=== PATIENT | female | born 1975 | race American Indian/Alaskan Native ===

== ENCOUNTER 2016-12-18 14:35 | Emergency (ER) | payer SELFPAY ==
[2016-12-18 14:54] VITALS: BP 126/86
[2016-12-18 15:40] LABS: Basophils % (Auto) 0.3 % (0.0-1.8); Eosinophils % (Auto) 7.4 % (0.0-4.3); Hematocrit 38.6 % (30.3-42.9); Hemoglobin 12.9 gm/dl (10.1-14.3); Mean Corpuscular HGB Conc 34 % (30-34); Mean Corpuscular Hemoglobin 34 pg (28-32); Mean Corpuscular Volume 102 fl (79-97); Platelet Count 268 K/mm3 (140-440); Red Blood Count 3.79 M/mm3 (3.65-5.03); Red Cell Distribution Width 13.7 % (13.2-15.2); White Blood Count 6.1 K/mm3 (4.5-11.0)
[2016-12-18 15:56] LABS: Anion Gap 17 mmol/L; BUN/Creatinine Ratio 6.66; Blood Urea Nitrogen 8 mg/dL (7-17); Calcium 9.1 mg/dL (8.4-10.2); Carbon Dioxide 24 mmol/L (22-30); Chloride 103.8 mmol/L (98-107); Glucose 98 mg/dL (65-100); Potassium 4.4 mmol/L (3.6-5.0); Sodium 140 mmol/L (137-145)
== END 2016-12-18 20:15 | disposition left against medical advice (07) ==
LOC: ED 14:35
DX: R07.9 Chest pain, unspecified (principal); Z53.21 Procedure and treatment not carried out due to patient leaving prior to being seen by health care provider
CPT/HCPCS: 36415; 80048; 84484; 85025; 93005; 93010

== ENCOUNTER 2017-07-18 21:10 | Inpatient (IN) | payer SELFPAY ==
[2017-07-18] MEDS ORDERED: ASPIRIN PO ONE (21:42)
[2017-07-18] MEDS ORDERED: SUBLIMAZE IV ONE (22:13)
[2017-07-18] MEDS ORDERED: NITROSTAT SL PRN (22:13)
--- NOTE | 2017-07-18 22:14 | Emergency Department Report ---
ED Chest Pain HPI - General Chief Complaint: Chest Pain Stated Complaint: CHEST PAIN Time Seen by Provider: 07/18/17 21:59 Source: patient, EMS (ems notes not available at time of chart dictation), RN notes reviewed Mode of arrival: Stretcher Limitations: No Limitations - History of Present Illness Initial Comments: This is a 42-year-old female, previously unknown to this provider, reported history of coronary artery disease with 2 stents, patient reports positive cardiac catheterization done at [facility] August of this year. Patient had insurance issues, and for a few weeks was not taking her Plavix and blood pressure medication. Presents today with complaint of left-sided chest pain that radiates to the left shoulder and neck. Patient has positive shortness of breath, no vomiting, no diaphoresis. Patient reports that she is not and has not given since the , she does not take oral contraceptive tablets, denies cocaine use, denies DVT/pulmonary embolus risk factors. MD Complaint: chest pain -: Gradual Onset: during rest Pain Location: left chest Pain Radiation: LUE, back, neck Severity: mild Quality: tightness, aching, heaviness Consistency: intermittent Improves With: nothing Worsens With: nothing Treatments Prior to Arrival: aspirin, nitroglycerin Aspirin use within the Past 7 Days: (1) Yes - Related Data On Oral Contraceptives: Yes Home Medications Medication Instructions Recorded Confirmed Last Taken Clopidogrel [Plavix] 75 mg PO QDAY 07/18/17 07/18/17 Unknown Lisinopril [Zestril] 40 mg PO QDAY 07/18/17 07/18/17 Unknown Carvedilol [Coreg] 3.125 mg PO QDAY 07/19/17 07/19/17 Unknown Previous Rx's Medication Instructions Recorded Last Taken Type Aspirin EC [Aspirin Enteric Coated 325 mg PO QDAY tablet 07/19/17 Unknown Rx TAB] Docusate Sodium [Colace CAP] 100 mg PO BID capsule 07/19/17 Unknown Rx Pantoprazole [Protonix TAB] 40 mg PO QDAY tablet 07/19/17 Unknown Rx Zolpidem [Ambien] 5 mg PO QHS PRN tablet 07/19/17 Unknown Rx amLODIPine [Norvasc] 5 mg PO QDAY tablet 07/19/17 Unknown Rx Allergies Allergy/AdvReac Type Severity Reaction Status Date / Time No Known Allergies Allergy Unverified 01/24/16 14:50 Heart Score - HEART Score History: Moderately suspicious EKG: Non-specific Age: < 45 Risk factors: 1-2 risk factors Troponin: < normal limit HEART Score: 3 - Critical Actions Critical Actions: 0-3 pts:0.9-1.7%risk of adverse cardiac event.Candidate for discharge ED Review of Systems ROS: Stated complaint: CHEST PAIN Other details as noted in HPI ED Past Medical Hx - Past Medical History Previous Medical History?: Yes Hx Hypertension: Yes Hx Heart Attack/AMI: Yes - Surgical History Hx Coronary Stent: Yes (x2) Hx Breast Surgery: Yes (breast reduction) - Social History Smoking Status: Current Every Day Smoker Substance Use Type: Alcohol, Prescribed - Medications Home Medications: Home Medications Medication Instructions Recorded Confirmed Last Taken Type Clopidogrel [Plavix] 75 mg PO QDAY 07/18/17 07/18/17 Unknown History Lisinopril [Zestril] 40 mg PO QDAY 07/18/17 07/18/17 Unknown History Aspirin EC [Aspirin Enteric Coated 325 mg PO QDAY tablet 07/19/17 Unknown Rx TAB] Carvedilol [Coreg] 3.125 mg PO QDAY 07/19/17 07/19/17 Unknown History Docusate Sodium [Colace CAP] 100 mg PO BID capsule 07/19/17 Unknown Rx Pantoprazole [Protonix TAB] 40 mg PO QDAY tablet 07/19/17 Unknown Rx Zolpidem [Ambien] 5 mg PO QHS PRN tablet 07/19/17 Unknown Rx amLODIPine [Norvasc] 5 mg PO QDAY tablet 07/19/17 Unknown Rx ED Physical Exam - General Limitations: No Limitations General appearance: alert, in no apparent distress - Head Head exam: Present: atraumatic, normocephalic - Eye Eye exam: Present: normal appearance, EOMI. Absent: nystagmus - ENT ENT exam: Present: normal exam, normal orophraynx, mucous membranes moist, normal external ear exam - Neck Neck exam: Present: normal inspection, full ROM - Respiratory Respiratory exam: Present: normal lung sounds bilaterally. Absent: respiratory distress - Cardiovascular Cardiovascular Exam: Present: regular rate, normal rhythm, normal heart sounds. Absent: systolic murmur, diastolic murmur, rubs, gallop - GI/Abdominal GI/Abdominal exam: Present: soft, normal bowel sounds. Absent: distended, tenderness, guarding, rebound, rigid, pulsatile mass - Extremities Exam Extremities exam: Present: normal inspection, full ROM, normal capillary refill. Absent: tenderness, pedal edema, joint swelling, calf tenderness - Back Exam Back exam: Present: normal inspection, full ROM. Absent: tenderness, CVA tenderness (R), paraspinal tenderness, vertebral tenderness - Neurological Exam Neurological exam: Present: alert, oriented X3, CN II-XII intact, normal gait, other (Extraocular movements intact. Tongue midline. No facial droop. Facial sensation intact to light touch in the V1, V2, V3 distribution bilaterally. 5 and 5 strength in 4 extremities.. Sensation is intact to light touch in 4 extremities.). Absent: motor sensory deficit - Psychiatric Psychiatric exam: Present: normal affect, normal mood - Skin Skin exam: Present: warm, dry, intact, normal color. Absent: rash ED Course Vital Signs 07/18/17 07/18/17 07/18/17 21:21 21:30 21:31 Temperature 98.4 F Pulse Rate 69 74 Respiratory 13 21 Rate Blood Pressure 146/87 147/86 147/86 Blood Pressure [Right] O2 Sat by Pulse 100 100 100 Oximetry 07/18/17 07/18/17 07/18/17 21:45 22:00 22:15 Temperature Pulse Rate 81 71 68 Respiratory 15 13 16 Rate Blood Pressure 147/86 156/93 156/96 Blood Pressure [Right] O2 Sat by Pulse 100 100 Oximetry 07/18/17 07/18/17 07/18/17 22:30 22:46 23:00 Temperature Pulse Rate 68 70 64 Respiratory 18 14 17 Rate Blood Pressure 144/92 144/92 144/92 Blood Pressure [Right] O2 Sat by Pulse 100 100 Oximetry 07/18/17 07/18/17 07/18/17 23:11 23:15 23:30 Temperature Pulse Rate 72 62 Respiratory 14 13 15 Rate Blood Pressure 154/92 158/90 Blood Pressure [Right] O2 Sat by Pulse 97 97 Oximetry 07/18/17 07/19/17 07/19/17 23:45 00:00 00:15 Temperature Pulse Rate 62 65 63 Respiratory 15 10 L 14 Rate Blood Pressure 145/83 139/87 142/84 Blood Pressure [Right] O2 Sat by Pulse 96 99 98 Oximetry 07/19/17 07/19/17 07/19/17 00:30 00:46 01:00 Temperature Pulse Rate 59 L 63 70 Respiratory 16 15 18 Rate Blood Pressure 146/85 153/86 158/85 Blood Pressure [Right] O2 Sat by Pulse 99 99 100 Oximetry 07/19/17 07/19/17 07/19/17 01:08 01:10 01:20 Temperature 98 F Pulse Rate 69 68 76 Respiratory 18 12 13 Rate Blood Pressure 146/85 153/84 Blood Pressure 158/85 [Right] O2 Sat by Pulse 100 100 99 Oximetry - Reevaluation(s) Reevaluation #1: 07/18/17 22:28 Differential diagnosis, including but not limited to: Acute coronary syndrome, GERD, gastritis, hiatal hernia, pneumonia Assessment and plan: 42-year-old female, history of stents 2, noncompliant with Plavix, with concerning chest pain. No pulmonary embolus or DVT risk factors, low risk by well's criteria, perc negative. Laboratory studies, x-rays of the chest pending, patient will be ordered for as needed nitroglycerin, fentanyl. Plan to admit for acute coronary syndrome risk stratification. We are attempting to obtain her old medical records from her prior cardiac catheterization. Reevaluation #2: 07/18/17 23:33 Troponin negative 1, chest x-ray unremarkable, case presented to cardiology on- call, Dr. Cross, and hospital physician chronometer assembler and adjuster, Dr. Vang Cardiology agrees with plan for admission and repeat risk stratification, he indicates they will follow in consultation, the hospital team graciously accepted the patient's to the medical service. DEVIN score - Devin Score Age > 65: (0) No Aspirin use within the Past 7 Days: (1) Yes 3 or more CAD Risk Factors: (0) No 2 or more Angina events in past 24 hrs: (0) No Known CAD with more than 50% Stenosis: (0) No Elevated Cardiac Markers: (0) No ST Deviation Greater than 0.5mm: (0) No DEVIN Score: 1 ED Medical Decision Making - Lab Data Result diagrams: 07/19/17 00:44 07/19/17 00:44 Vital Signs 07/18/17 21:31 Temperature 98.4 F Pulse Rate 74 Respiratory 21 Rate Blood Pressure 147/86 O2 Sat by Pulse 100 Oximetry - EKG Data -: EKG Interpreted by Me - EKG Data When compared to previous EKG there are: previous EKG unavailable 07/18/17 22:29 Normal sinus, 73 beats per minute, borderline left axis deviation, incomplete right bundle branch block, QTC prolonged at 459 ms, abnormal EKG, no prior for comparison, not morphologically consistent with ST elevation myocardial infarction. - Radiology Data Radiology results: image reviewed interpreted by me: X-ray of the chest, interpreted by me: No acute disease Critical care attestation.: If time is entered above; I have spent that time in minutes in the direct care of this critically ill patient, excluding procedure time. ED Disposition Clinical Impression: Coronary artery disease, Chest pain Disposition: OP ADMIT IP TO THIS HOSP Is pt being admited?: Yes Condition: Good
[2017-07-18 22:59] LABS: Basophils % (Auto) 0.5 % (0.0-1.8); Eosinophils # (Auto) 0.4 K/mm3 (0.0-0.4); Eosinophils % (Auto) 6.2 % (0.0-4.3); Hematocrit 36.4 % (30.3-42.9); Hemoglobin 12.2 gm/dl (10.1-14.3); Lymphocytes # (Auto) 3.2 K/mm3 (1.2-5.4); Mean Corpuscular HGB Conc 34 % (30-34); Mean Corpuscular Hemoglobin 34 pg (28-32); Mean Corpuscular Volume 103 fl (79-97); Monocytes # (Auto) 0.5 K/mm3 (0.0-0.8); Monocytes % (Auto) 7.7 % (0.0-7.3); Platelet Count 273 K/mm3 (140-440); Red Blood Count 3.55 M/mm3 (3.65-5.03); Red Cell Distribution Width 13.8 % (13.2-15.2)
[2017-07-18 23:10] LABS: INR 0.84 (0.87-1.13)
[2017-07-18 23:20] LABS: BUN/Creatinine Ratio 10; Blood Urea Nitrogen 7 mg/dL (7-17); Calcium 8.7 mg/dL (8.4-10.2); Hemolysis Index 5
--- NOTE | 2017-07-19 00:07 | XRay Report ---
FINAL REPORT PROCEDURE: XR CHEST 1V AP TECHNIQUE: Chest radiograph anteroposterior view. CPT 48437 HISTORY: cp COMPARISON: No prior studies are available for comparison. FINDINGS: Heart: Normal. Mediastinum/Vessels: Normal. Lungs/Pleural space: There are no infiltrates, effusions or pneumothoraces.. Bony thorax: No acute osseous abnormality. Life support devices: None. IMPRESSION: No acute cardiopulmonary abnormality.
--- NOTE | 2017-07-19 00:20 | History and Physical Report ---
History of Present Illness Date of examination: 07/19/17 Chief complaint: Chest pain History of present illness: Patient is a 42-year-old female with a known history of CAD status post PCI back in August 2016. This was done at [facility] and she had 2 stents placed. 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 Patient stated that today she has been trying to refill her blood pressure medicines and her Plavix but unable to do so because the [facility] system takes too long to refill patient's prescriptions and she has been out of her Plavix and blood pressure medicine for the past 2 weeks. She was at work when she had sudden onset of precordial chest pain and chest tightness going to her back radiating to the left shoulder and left arm. No associated nausea vomiting tingling numbness or weakness. Patient has been having these intermittent dizziness over the past few months and has been evaluated for it in the past with a negative workup. She denies any headache or shortness of breath or palpitations. No other GI or symptoms. Past History Past Medical History: CAD, hypertension Past Surgical History: Other (PCI) Social history: lives with family, smoking, alcohol abuse, full code Family history: no significant family history Medications and Allergies Allergies Allergy/AdvReac Type Severity Reaction Status Date / Time No Known Allergies Allergy Unverified 01/24/16 14:50 Home Medications Medication Instructions Recorded Confirmed Last Taken Type Clopidogrel [Plavix] 75 mg PO QDAY 07/18/17 07/18/17 Unknown History Lisinopril [Zestril] 40 mg PO QDAY 07/18/17 07/18/17 Unknown History Carvedilol [Coreg] 3.125 mg PO QDAY 07/19/17 07/19/17 Unknown History Active Meds: Active Medications Nitroglycerin (Nitrostat) 0.4 mg SL .Q5MIN PRN PRN Reason: Chest Pain Review of Systems All systems: negative Exam - Physical Exam Narrative exam: General: the patient is awake alert oriented to time place and person. no evidence of acute distress HEENT: Head is atraumatic normocephalic,. Pupils equal round reactive to light and accommodation, extraocular movements intact. Oral mucosa moist. Oropharynx clear. No pharyngeal erythema or tonsillar exudate. Neck: Supple no JVD no thyromegaly or lymphadenopathy. Heart: Regular rate and rhythm no murmurs or gallops. S1 and S2 normal. PMI not displaced. Lungs: Clear to auscultation bilaterally. No rales rhonchi wheezing. Nonlabored breathing. Normal chest wall expansion. Abdomen: Soft, nondistended, and nontender. Normoactive bowel sounds. No hepatosplenomegaly. No abdominal masses or bruit appreciated. Extremities: No cyanosis/clubbing/ edema. Musculoskeletal: Normal range of movement all joints. No obvious deformity or tenderness to palpation. Normal muscle tone. Back: Normal alignment. No step-off. No midline or paraspinal tenderness. No CVA tenderness. Neurological: Grossly intact and nonfocal. No cerebellar signs. Cranial nerves II-12 grossly intact. Strength 5 out of 5 all 4 extremities. Sensations grossly intact. Skin: Warm and dry no rashes or bruises. Psychiatric: Normal mood. Appropriate affect and good insight and judgment. Vascular system: No lymphadenopathy. Distal pulses 2+ bilaterally. - Constitutional Vitals: Temp Pulse Resp BP Pulse Ox 98.4 F 74 14 147/86 100 07/18/17 21:31 07/18/17 21:31 07/18/17 23:11 07/18/17 21:31 07/18/17 21:31 Results - Labs CBC & Chem 7: 07/18/17 22:42 07/18/17 22:42 Labs: Laboratory Last Values WBC 7.0 K/mm3 (4.5-11.0) 07/18/17 22:42 RBC 3.55 M/mm3 (3.65-5.03) L 07/18/17 22:42 Hgb 12.2 gm/dl (10.1-14.3) 07/18/17 22:42 Hct 36.4 % (30.3-42.9) 07/18/17 22:42 MCV 103 fl (79-97) H 07/18/17 22:42 MCH 34 pg (28-32) H 07/18/17 22:42 MCHC 34 % (30-34) 07/18/17 22:42 RDW 13.8 % (13.2-15.2) 07/18/17 22:42 Plt Count 273 K/mm3 (140-440) 07/18/17 22:42 Lymph % (Auto) 46.0 % (13.4-35.0) H 07/18/17 22:42 [place] % (Auto) 7.7 % (0.0-7.3) H 07/18/17 22:42 Eos % (Auto) 6.2 % (0.0-4.3) H 07/18/17 22:42 Baso % (Auto) 0.5 % (0.0-1.8) 07/18/17 22:42 Lymph # 3.2 K/mm3 (1.2-5.4) 07/18/17 22:42 [place] # 0.5 K/mm3 (0.0-0.8) 07/18/17 22:42 Eos # 0.4 K/mm3 (0.0-0.4) 07/18/17 22:42 Baso # 0.0 K/mm3 (0.0-0.1) 07/18/17 22:42 Seg Neutrophils % 39.6 % (40.0-70.0) L 07/18/17 22:42 Seg Neutrophils # 2.8 K/mm3 (1.8-7.7) 07/18/17 22:42 PT 11.9 Sec. (12.2-14.9) L 07/18/17 22:42 INR 0.84 (0.87-1.13) L 07/18/17 22:42 Sodium 140 mmol/L (137-145) 07/18/17 22:42 Potassium 4.0 mmol/L (3.6-5.0) 07/18/17 22:42 Chloride 104.0 mmol/L (98-107) 07/18/17 22:42 Carbon Dioxide 24 mmol/L (22-30) 07/18/17 22:42 Anion Gap 16 mmol/L 07/18/17 22:42 BUN 7 mg/dL (7-17) 07/18/17 22:42 Creatinine 0.7 mg/dL (0.7-1.2) 07/18/17 22:42 Estimated GFR > 60 ml/min 07/18/17 22:42 BUN/Creatinine Ratio 10 % 07/18/17 22:42 Glucose 98 mg/dL (65-100) 07/18/17 22:42 Calcium 8.7 mg/dL (8.4-10.2) 12/28/17 22:42 Troponin T < 0.010 ng/mL (0.00-0.029) 07/18/17 22:42 - Imaging and Cardiology Imaging and Cardiology: EKG showing normal sinus rhythm rate of 73 right bundle branch block but otherwise negative for acute ischemia or other arrhythmia. QTC prolonged at 459 MS Chest x-ray showing no acute cardiopulmonary process. Assessment and Plan Assessment and plan: Assessment and plan - * Chest pain rule out acute coronary syndrome * Hypertension malignant * Tobacco abuse * Coronary artery disease status post PCI Plan - Admitted to medical floor with telemetry for 24-hour observation For the chest pain protocol and get serial cardiac enzymes Consulted cardiology in the ER for further management and evaluation recommendations. Patient may need stress test in the morning Continue her home medications and give when necessary hydralazine for optimal blood pressure control Check a fasting lipid panel Aspirin Statin Monitor CBC and electrolytes replace electrolytes when necessary as per protocol. GI prophylaxis as ordered monitor follow the patient closely.
[2017-07-19] MEDS ORDERED: SODIUM CHLORIDE FLUSH SYRINGE 10 ML IV PRN (00:23)
[2017-07-19] MEDS ORDERED: DULCOLAX PR PRN (00:23)
[2017-07-19] MEDS ORDERED: APRESOLINE IV PRN (00:23)
[2017-07-19] MEDS ORDERED: PROVENTIL IH PRN (00:23)
[2017-07-19] MEDS ORDERED: AMBIEN PO PRN (00:23)
[2017-07-19] MEDS ORDERED: ZOFRAN IV PRN (00:23)
[2017-07-19] MEDS ORDERED: MILK OF MAGNESIA PO PRN (00:23)
[2017-07-19] MEDS ORDERED: TYLENOL PO PRN (00:23)
[2017-07-19] MEDS ORDERED: NACL 0.45% 1000 ML 1,000 ML IV SCH (01:00)
[2017-07-19 01:14] LABS: Basophils % (Auto) 0.6 % (0.0-1.8); Eosinophils # (Auto) 0.4 K/mm3 (0.0-0.4); Eosinophils % (Auto) 5.9 % (0.0-4.3); Hematocrit 41.4 % (30.3-42.9); Hemoglobin 13.6 gm/dl (10.1-14.3); Lymphocytes # (Auto) 3.5 K/mm3 (1.2-5.4); Lymphocytes % (Auto) 48.9 % (13.4-35.0); Mean Corpuscular HGB Conc 33 % (30-34); Mean Corpuscular Hemoglobin 35 pg (28-32); Mean Corpuscular Volume 105 fl (79-97); Monocytes # (Auto) 0.4 K/mm3 (0.0-0.8); Monocytes % (Auto) 6.1 % (0.0-7.3); Red Blood Count 3.96 M/mm3 (3.65-5.03)
[2017-07-19 01:22] LABS: Platelet Count 196 K/mm3 (140-440)
[2017-07-19 01:28] LABS: BUN/Creatinine Ratio 9; Blood Urea Nitrogen 6 mg/dL (7-17); Hemolysis Index 78
[2017-07-19 01:58] LABS: Chol/HDL Ratio 3.52 %; HDL Cholesterol 44 mg/dL (40-59); LDL Cholesterol,Direct 100 mg/dL (50-130)
[2017-07-19] MEDS ORDERED: LOVENOX SUB-Q SCH (10:00)
[2017-07-19] MEDS ORDERED: COREG PO SCH (10:00)
[2017-07-19] MEDS ORDERED: PLAVIX PO SCH (10:00)
[2017-07-19] MEDS ORDERED: COLACE PO SCH (10:00)
[2017-07-19] MEDS ORDERED: NORVASC PO SCH (10:00)
[2017-07-19] MEDS ORDERED: PROTONIX PO SCH (10:00)
[2017-07-19] MEDS ORDERED: ZESTRIL PO SCH (10:00)
--- NOTE | 2017-07-19 10:13 | Consultation ---
History of Present Illness Consult date: 07/19/17 Requesting physician: MOHAMUD QUIROZ Consult reason: chest pain History of present illness: The pt is a 42 YO female with a past medical history significant for CAD s/p PCI x2 in 08/2016 at [facility], HTN and tobacco use. She is previously unknown to our practice. She reports that she is regularly followed by [facility] cardiology. She presented with c/o chest pain since yesterday evening. She reports that she was at work when she noted the onset of her pain, but was not doing anything physically active. She describes her pain as a precordial tightness and pressure which radiates into her back, left shoulder and left arm. She also c/o intermittent dizziness for the past day. She denies any SOB, palpitations, n/v, diaphoresis or syncope. She admits that she has been out of her prescription medications, including Plavix and anti-hypertensives, for the past 2 week due to pharmacy issues. Past History Past Medical History: CAD, hypertension Past Surgical History: Other (PCI) Social history: lives with family, smoking, alcohol abuse, full code Family history: no significant family history Medications and Allergies Allergies Allergy/AdvReac Type Severity Reaction Status Date / Time No Known Allergies Allergy Unverified 01/24/16 14:50 Home Medications Medication Instructions Recorded Confirmed Last Taken Type Clopidogrel [Plavix] 75 mg PO QDAY 07/18/17 07/18/17 Unknown History Lisinopril [Zestril] 40 mg PO QDAY 07/18/17 07/18/17 Unknown History Carvedilol [Coreg] 3.125 mg PO QDAY 07/19/17 07/19/17 Unknown History Active Meds: Active Medications Acetaminophen (Tylenol) 650 mg PO Q4H PRN PRN Reason: Pain MILD(1-3)/Fever >100.5/JEAN Albuterol (Proventil) 2.5 mg IH Q3HRT PRN PRN Reason: Shortness Of Breath Amlodipine Besylate (Norvasc) 5 mg PO QDAY [facility] Aspirin (Ecotrin) 325 mg PO QDAY [facility] Atorvastatin Calcium (Lipitor) 40 mg PO QHS [facility] Bisacodyl (Dulcolax) 10 mg ME QDAY PRN PRN Reason: Constipation unrelieved by MOM Carvedilol (Coreg) 6.25 mg PO BID [facility] Clopidogrel Bisulfate (Plavix) 75 mg PO QDAY [facility] Docusate Sodium (Colace) 100 mg PO BID [facility] Enoxaparin Sodium (Lovenox) 40 mg SUB-Q QDAY [facility] Hydralazine HCl (Apresoline) 10 mg IV Q6H PRN PRN Reason: FOR SBP > target Sodium Chloride (Nacl 0.45% 1000 Ml) 1,000 mls @ 100 mls/hr IV DIRECT [facility] Lisinopril (Zestril) 40 mg PO QDAY [facility] Magnesium Hydroxide (Milk Of Magnesia) 30 ml PO Q4H PRN PRN Reason: Constipation Nitroglycerin (Nitrostat) 0.4 mg SL .Q5MIN PRN PRN Reason: Chest Pain Last Admin: 07/19/17 02:47 Dose: 0.4 mg Ondansetron HCl (Zofran) 4 mg IV Q8H PRN PRN Reason: N/V unrelieved by Reglan Pantoprazole Sodium (Protonix) 40 mg PO QDAY [facility] Sodium Chloride (Sodium Chloride Flush Syringe 10 Ml) 10 ml IV PRN PRN PRN Reason: LINE FLUSH Zolpidem Tartrate (Ambien) 5 mg PO QHS PRN PRN Reason: Sleep Last Admin: 07/19/17 02:47 Dose: 5 mg Review of Systems Constitutional: no weight loss, no weight gain, no fever, no chills, no sweats Ears, nose, mouth and throat: no ear pain, no nose pain, no sinus pressure, no sinus pain Cardiovascular: chest pain, lightheadedness, high blood pressure, no orthopnea, no palpitations, no rapid/irregular heart beat, no edema, no syncope, no shortness of breath, no dyspnea on exertion, no leg edema Respiratory: no cough, no shortness of breath, no dyspnea on exertion, no congestion, no wheezing, no pain on inspiration Gastrointestinal: no abdominal pain, no nausea, no vomiting, no diarrhea, no constipation, no change in bowel habits Genitourinary Female: no pelvic pain, no flank pain, no menorrhagia, no dysuria , no urinary frequency, no urgency Musculoskeletal: no neck stiffness, no neck pain, no shooting arm pain, no arm numbness/tingling, no low back pain, no shooting leg pain, no leg numbness/ tingling, no redness of joints Integumentary: no rash, no pruritis, no redness, no sores, no wounds Neurological: no head injury, no paralysis, no weakness, no parathesias, no numbness, no tingling, no seizures, no syncope Psychiatric: no anxiety Endocrine: no cold intolerance, no heat intolerance Hematologic/Lymphatic: no easy bruising, no easy bleeding, no lymphadenopathy Allergic/Immunologic: no urticaria, no wheezing, no persistent infections Physical Examination Vital Signs BP Pulse Ox 146/87 100 07/18/17 21:21 07/18/17 21:21 General appearance: no acute distress HEENT: Positive: PERRL, Normocephaly, Mucus Membranes Moist Neck: Positive: neck supple, trachea midline Cardiac: Positive: Reg Rate and Rhythm, S1/S2 Lungs: Positive: clear to auscultation Neuro: Positive: Grossly Intact, Cranial Nerve 2-12 Intact Abdomen: Positive: Unremarkable, Soft, Active Bowel Sounds. Negative: Tender Skin: Positive: Clear. Negative: Rash, Wound Musculoskeletal: No Fluid Collection, No Pain, Normal Range of Motion Extremities: Absent: edema Results 07/19/17 00:44 07/19/17 00:44 Coagulation 07/18/17 Range/Units 22:42 PT 11.9 L (12.2-14.9) Sec. INR 0.84 L (0.87-1.13) Lipids 07/19/17 Range/Units 00:44 Triglycerides 56 (2-149) mg/dL Cholesterol 155 (50-199) mg/dL HDL Cholesterol 44 (40-59) mg/dL Cholesterol/HDL Ratio 3.52 % CBC 07/18/17 07/19/17 Range/Units 22:42 00:44 WBC 7.0 7.1 (4.5-11.0) K/mm3 RBC 3.55 L 3.96 (3.65-5.03) M/mm3 Hgb 12.2 13.6 (10.1-14.3) gm/dl Hct 36.4 41.4 (30.3-42.9) % Plt Count 273 196 (140-440) K/mm3 Lymph # 3.2 3.5 (1.2-5.4) K/mm3 [place] # 0.5 0.4 (0.0-0.8) K/mm3 Eos # 0.4 0.4 (0.0-0.4) K/mm3 Baso # 0.0 0.0 (0.0-0.1) K/mm3 Comprehensive Metabolic Panel 07/18/17 07/19/17 Range/Units 22:42 00:44 Sodium 140 139 (137-145) mmol/L Potassium 4.0 4.1 (3.6-5.0) mmol/L Chloride 104.0 102.0 (98-107) mmol/L Carbon Dioxide 24 23 (22-30) mmol/L BUN 7 6 L (7-17) mg/dL Creatinine 0.7 0.7 (0.7-1.2) mg/dL Glucose 98 93 (65-100) mg/dL Calcium 8.7 9.0 (8.4-10.2) mg/dL - Imaging and Cardiology Echo: pending EKG: report reviewed, image reviewed EKG interpretations - Telemetry EKG Rhythm: Sinus Rhythm - EKG Sinus rhythms and dysrhythmias: sinus rhythm Assessment and Plan Assessment: Chest pain - with typical features; ECG with NAF; Alonzo negative for AMI CAD s/p PCI x 2 in 08/2016 at [facility] Tobacco use - cessation encouraged Plan: Agree with current cardiac regimen. Proceed with lexiscan MPI stress test this AM. Await findings. Obtain echo. Assessment and plan reviewed with pt at bedside. The patient has been seen in conjunction with Dr. Woods who agrees with the assessment and plan of care.
[2017-07-19] MEDS ORDERED: LEXISCAN IV ONE (11:33)
--- NOTE | 2017-07-19 13:17 | Event Note ---
Date: 07/19/17 Lexiscan MPI stress test this AM negative for ischemia. Echo reviewed with no acute findings. Currently stable cardiac status. Pt may discharge home from cardiology standpoint. Recommend pt follow up with primary auto collision repair instructor at [place] within 1-2 weeks of hospital discharge. Kai EDOUARD NP / DR. FLORES
--- NOTE | 2017-07-19 13:34 | Discharge Summary ---
<VALERIEYONI - Last Filed: 07/19/17 14:00> Providers - Providers Date of Admission: 07/19/17 00:23 Date of discharge: 07/19/17 Attending physician: TISH SHABAZZ 07/18/17 23:33 Consult to Physician [CONS] Urgent Consulting Provider: MARU ESCOBAR Reason For Exam: cp Notified:: yes 07/19/17 00:23 Consult to Cardiology [CONS] Routine Consulting Provider: SUNDAY FOWLER Reason For Exam: chest pain Primary care physician: SABINA HO Hospitalization Reason for admission: Chest pain Condition: Good Hospital course: Patient is a 42-year-old female with past medical history of hypertension and coronary artery disease and status post PCI back in August 2016 was done at [facility] and she had 2 stents placed. Patient had sudden onset of precordial chest pain and chest tightness going to her back radiating to the left shoulder and left arm. Patient was diagnosed Chest Pain, Hypertension malignant,Tobacco abuse and coronary artery disease status post PCI.Patient presented with atypical chest pain, ACS was ruled out, stress test normal MPI, negative cardiac enzymes, ECGs shows normal sinus rythm, CXR WNL. Patient chest pain probably from musculoskeletal. She was treated with IV fluid hydration and antihypertensive medications. Patient is clinically improved. Patient advised to follow-up with her [employer] and primary care provider. Discharge Diagnosed Chest Pain due to Costochondritis Hypertension malignant Tobacco abuse Coronary artery disease status post PCI Disposition: DC-01 TO HOME OR SELFCARE Time spent for discharge: 32 minutes Core Measure Documentation - Palliative Care Palliative Care/ Comfort Measures: Not Applicable - Core Measures Any of the following diagnoses?: none Exam - Constitutional Vitals: Temp Pulse Resp BP Pulse Ox 98.4 F 97 H 20 140/91 100 07/19/17 07:42 07/19/17 11:41 07/19/17 07:42 07/19/17 11:41 07/19/17 07:42 General appearance: Present: no acute distress - EENT Eyes: Present: PERRL ENT: hearing intact - Neck Neck: Present: supple - Respiratory Respiratory effort: normal Respiratory: bilateral: CTA - Cardiovascular Rhythm: regular Heart Sounds: Present: S1 & S2 - Abdominal General gastrointestinal: Present: soft, non-tender Female genitourinary: Present: deferred - Rectal Rectal Exam: deferred - Integumentary Integumentary: Present: clear, warm, dry - Musculoskeletal Musculoskeletal: strength equal bilaterally - Psychiatric Psychiatric: appropriate mood/affect - Neurologic Neurologic: moves all extremities - Allied Health Allied health notes reviewed: nursing Plan Diet: low fat, low cholesterol, low salt Follow up with: JOSE MIGUEL PEREZ PA [Primary Care Provider] - 3-5 Days <TISH SHABAZZ - Last Filed: 07/19/17 15:38> Providers - Providers Date of Admission: 07/19/17 00:23 Attending physician: TISH SHABAZZ 07/18/17 23:33 Consult to Physician [CONS] Urgent Consulting Provider: MARU ESCOBAR Reason For Exam: cp Notified:: yes 07/19/17 00:23 Consult to Cardiology [CONS] Routine Consulting Provider: SUNDAY FOWLER Reason For Exam: chest pain Primary care physician: SABINA HO Hospitalization Hospital course: I saw and evaluated the patient. I agree with the findings and the plan of care as documented in the Nurse Practitioner's~note, with the following corrections and additions. Core Measure Documentation - Palliative Care Palliative Care/ Comfort Measures: Not Applicable - Core Measures Any of the following diagnoses?: none - VTE Discharge Requirements Deep Vein Thrombosis/Pulmonary Embolism Present on Admission: No Has pt received <5 days of overlap therapy or INR<2.0: No Anticoagulant overlap therapy prescribed at discharge: No Contraindication No Overlap Therapy order at DC: Not Indicated Exam - Constitutional Vitals: Temp Pulse Resp BP Pulse Ox 98.4 F 97 H 20 140/91 100 07/19/17 07:42 07/19/17 11:41 07/19/17 07:42 07/19/17 11:41 07/19/17 07:42 Plan Activity: other (no strenous activity until cleared pcp)
[2017-07-19 16:16] VITALS: BP 129/80
--- NOTE | 2017-07-20 03:37 | Treadmill Report ---
NUCLEAR STRESS TEST REFERRING PHYSICIAN: Hospitalist service. PROTOCOL: The patient was brought to the stress lab in a postoperative state, given 10 mCi of technetium 99m at rest. The patient underwent rest imaging. The patient underwent Lexiscan stress test per standard protocol. At peak stress, the patient was given 26 mCi of technetium 99m. Shortly thereafter, the patient underwent stress imaging. Raw imaging reveals mild GI artifact, no significant motion artifact. SPECT imaging examined carefully in horizontal long axis, vertical long axis, short axis views. There is normal homogenous uptake of radioisotope in all reported segments. No evidence of significant fixed or reversible perfusion defects suggestive of prior infarction or ischemia. Gated wall motion reveals normal systolic thickening, calculated ejection fraction of 60%. No TID. CONCLUSIONS: 1. This is a normal myocardial perfusion scan without evidence of active ischemia or prior infarction. 2. Normal left ventricular systolic performance without evidence of transient ischemic dilatation or stress-induced segmental wall motion abnormalities. JOB# [id number] DAISY/AMPARO
[2017-07-20] MEDS ORDERED: ECOTRIN PO SCH (10:00)
== END 2017-07-19 15:15 | disposition home or self-care (01) | DRG 206 ==
LOC: ED 21:10 → 3A 07-19 00:23
PROVIDERS: ADMIT Internal Medicine Geriatric Medicine; ATTEND Internal Medicine
DX: M94.0 Chondrocostal junction syndrome [Tietze] (principal); I25.10 Atherosclerotic heart disease of native coronary artery without angina pectoris; I10 Essential (primary) hypertension; F17.200 Nicotine dependence, unspecified, uncomplicated; F10.10 Alcohol abuse, uncomplicated; Z79.82 Long term (current) use of aspirin; I25.2 Old myocardial infarction; Z79.899 Other long term (current) drug therapy
CPT/HCPCS: 36415; 71010; 78452; 80048; 80061; 83036; 84484; 85025; 85610; 93005; 93010; 93017; 93306; 96374; A9502; J1650; J2785; J3010